=== PATIENT | male | born 1955 | race Caucasian/White ===

== ENCOUNTER → 2023-07-23 | Day surgery (SDC) | payer OTHER ==
--- NOTE | 2023-07-23 11:07 | RAD REPORT ---
EXAM DESCRIPTION: US - Guided FNA Non Breast - 07/23/2023 10:39 am CLINICAL HISTORY: E04.1 COMPARISON: No comparisons FINDINGS: Preoperative diagnosis: Right thyroid nodule.. Post operative diagnosis: Same. Conscious Sedation: None Fluoroscopy time: None Contrast used: None Estimated blood loss: Minimal Specimens: The right neck was prepped and draped in the usual sterile fashion. 1% lidocaine was infiltrated into the subcutaneous tissues for local anesthesia. Real time ultrasound scanning of the right thyroid de monstrated 8 mm nodule with small calcifications.. Under ultrasound guidance, using 25 gauge FNA need les, 5 specimens were obtained of this lesion and sent to pathology for evaluation. Technically, the FNA procedure was challenging due to deep position of the nodule in the neck. There were no complicat ions. IMPRESSION: Successful ultrasound-guided FNA procedure right thyroid nodule. The procedure was technically challenging due to the inferior/deep location of the nodule. Due to thi s, suggest 6-12 month follow-up thyroid sonogram for surveillance purposes.
== END ==
LOC: FNA 08:00
PROVIDERS: ATTEND Otolaryngology Facial Plastic Surgery
PROC: 0GBH3ZX Excision of Right Thyroid Gland Lobe, Percutaneous Approach, Diagnostic (ICD-10-PCS; principal; 2023-07-23)
DX: E04.1 Nontoxic single thyroid nodule (principal)
CPT/HCPCS: 88162